=== PATIENT | male | born 1975 ===

== ENCOUNTER 2020-05-01 10:14 | Emergency (ER) | payer SELFPAY ==
[~2020-05-01] VITALS: Ht 162.6 cm; Wt 72.6 kg
[2020-05-01] MEDS ORDERED: OMEPRAZOLE20 MG PO (10:30)
== END 2020-05-01 10:44 | disposition home or self-care (01) ==
LOC: ED 10:14
DX: R05 Cough (principal); R09.81 Nasal congestion